=== PATIENT | female | born 1930 | race Caucasian/White ===

== ENCOUNTER 2016-07-04 10:55 | Outpatient (CLI) | payer OTHER, BC ==
[~2016-07-04 10:55] MED LIST: ATORVASTATIN CA10 MG PO; COATED ASPIRIN325 MG PO; COZAAR100 MG PO; NORCO1 TA1 PO
--- NOTE | 2016-07-04 13:46 | DIAGNOSTIC IMAGING REPORT ---
PROCEDURE: CT THORAX WITH CONTRAST INDICATION: AXILLARY MASS TECHNIQUE: 100 ml of Isovue 300 was injected intravenously and axial images were obtained of the chest with coronal and sagittal reformations. COMPARISON: Chest x-ray 01/30/2016 FINDINGS: There are no subcutaneous, fatty, or intramuscular masses in the right axilla. No adenopathy. The thyroid gland is slightly heterogeneous. Thoracic aorta demonstrates mild ascending aortic aneurysm measuring 4.1 cm and shows mild to moderate atherosclerotic calcification of the arch. The great vessels demonstrates normal branching pattern and also demonstrates mild calcification. The central pulmonary arteries are patent. The right pulmonary artery is mildly ectatic. Mild biventricular cardiomegaly, anterior pericardial thickening/ effusion, and moderate coronary atherosclerosis. There is a right-sided moderate to large, stomach containing hiatal hernia. The proximal esophagus is normal caliber. The gastroesophageal junction is within the hernia, well above the diaphragm. No suspicious anterior or posterior mediastinal masses. No adenopathy or suspicious chest masses. The airway is patent and branches normally. There is a tiny amount of lingular scarring laterally. The lungs are otherwise clear. Pleural surfaces are normal. Osseous structures demonstrate a leftward curvature of the thoracolumbar junction secondary to degenerative disc endplate changes. There are moderate to large endplate spurs of the mid thoracic vertebral bodies. There is eventration of the left hemidiaphragm and the redundant, stool-filled colon in the left upper quadrant. The proximal abdominal aorta demonstrates moderate to heavy atherosclerosis. The right kidney is diminutive and the right renal artery origin may be stenotic secondary to calcific atherosclerosis. IMPRESSION: 1. No evidence of suspicious mass or adenopathy in the right axilla. 2. Large, chronic right hiatal hernia containing the gastroesophageal junction and proximal stomach. 3. Ascending aortic aneurysm, 4.1 cm in AP diameter. 4. Mild cardiomegaly and very small pericardial thickening/effusion anteriorly. 5. Moderate systemic and coronary atherosclerosis, potentially causing right renal artery stenosis and right renal atrophy. Correlate clinically.
== END 2016-07-04 23:00 ==
LOC: CT SRH 10:55
DX: I51.7 Cardiomegaly (principal); K44.9 Diaphragmatic hernia without obstruction or gangrene; I71.2 Thoracic aortic aneurysm, without rupture; I25.10 Atherosclerotic heart disease of native coronary artery without angina pectoris